=== PATIENT | female | born 1960 | race Caucasian/White ===

== ENCOUNTER 2023-09-12 13:22 | Outpatient (CLI) | payer MEDICARE | END 2023-09-12 13:23 | disposition home or self-care (01) | LOC: SCSRAD 13:22 | PROVIDERS: ATTEND Family Medicine | DX: R53.83 Other fatigue (principal); R93.5 Abnormal findings on diagnostic imaging of other abdominal regions, including retroperitoneum; R39.9 Unspecified symptoms and signs involving the genitourinary system | CPT/HCPCS: 36415; 71046; 80053; 85025; 87077; 87086; 87186; 87635 ==

== ENCOUNTER 2023-09-14 09:55 | Day surgery (SDC) | payer MEDICARE ==
[2023-09-14 11:50] LABS: #Basophils 0.1 thou/uL (0.0-0.2); #Eosinphils 2.7 thou/uL (0.0-0.7); #Monocytes 0.6 thou/uL (0.11-0.59); #Neutrophils 5.7 thou/uL (1.40-6.50); %Basophils 0.8 % (0.0-1.0); %Eosinophils 22.2 % (0.0-10.0); %Monocytes 4.8 % (0.0-10.0); Hematocrit 46.1 % (36.0-47.0); Hemoglobin 15.1 g/dL (12.0-16.0); Mean Corpuscular HGB CONC 32.8 g/dL (32.0-36.0); Mean Corpuscular Hemoglobin 30.5 pg (27.0-31.0); Mean Corpuscular Volume 93.1 fl (78.0-98.0); Mean Platelet Volume 11.6 fL (7.4-10.4); Platelet Count 257 10x3/uL (130-400); RBC Distribution Width 14.1 % (11.5-14.5); Red Blood Cell (RBC) Count 4.95 mill/uL (4.20-5.40); White Blood Cell (WBC) Count 12.1 10x3/uL (4.8-10.8)
[2023-09-14 12:18] LABS: ALT (SGPT) 12 U/L (8-55); AST (SGOT) 18 U/L (5-34); Alkaline Phosphatase 104 U/L (40-110); Anion Gap 10 mmol/L (10-20); BUN (Urea Nitrogen) 16 mg/dL (9.8-20.1); Bilirubin, Total 0.3 mg/dL (0.2-1.2); Calc. Creatinine Clearance 0 mL/min (70-130); Calcium 9.6 mg/dL (7.8-10.44); Carbon Dioxide 26 mmol/L (23-31); Chloride 107 mmol/L (98-107); Estimated GFR 49; Globulin 2.8 g/dL (2.4-3.5); Glucose 81 mg/dL (80-115); Potassium 4.8 mmol/L (3.5-5.1); Protein, Total 6.8 g/dL (5.8-8.1); Sodium 138 mmol/L (136-145)
[2023-09-14] MEDS ORDERED: Ketorolac Tromethamine 30 MG (1 mL) VIAL ONE (12:39)
[2023-09-14] MEDS ORDERED: Sodium Chloride 0.9% 100 ML ONE (12:39)
[2023-09-14] MEDS ORDERED: cefTRIAXone (ROCEPHIN) 2 GM VIAL ONE (12:39)
[2023-09-14 13:34] LABS: Bacteria/HPF None Seen HPF (None Seen); Bilirubin Negative (Negative); Blood, Urine Negative (Negative); CAUTI Indications for Culture Dysuria,urgency,freq; Clarity Clear (Clear); Glucose, Urine (Dipstick) Normal (Negative); Ketone, Urine Negative (Negative); Leukocyte 25 Leu/uL (Negative); Nitrite Negative (Negative); Protein, Urine (Dipstick) Negative (Neg-Trace); RBC/HPF 0-3 HPF (0-3); Squamous Epithelial 0-3 HPF (0-3); Urobilinogen Normal mg/dL (Less than 2); pH, Urine 5.5 (5.0-9.0)
[2023-09-14 13:37] LABS: Urine Culture Reflex Yes Yes
[2023-09-14] MEDS ORDERED: Ondansetron PF 4 MG/2 ML Vial ONE (17:12)
[2023-09-14] MEDS ORDERED: Lidocaine 1% PF 5 ML VIAL ONE (17:12)
[2023-09-14] MEDS ORDERED: Dexamethasone 20 MG/5 ML VIAL ONE (17:13)
[2023-09-14] MEDS ORDERED: PROPOFOL 20 ML ONE (17:13)
[2023-09-14] MEDS ORDERED: fentaNYL 50 mcg/mL 1 mL Vial ONE (17:13)
[2023-09-14] MEDS ORDERED: HYDROmorphone 2 MG/ML VIAL ONE (17:32)
[2023-09-14] MEDS ORDERED: Iopamidol 15 ML ONE (17:34)
[2023-09-14] MEDS ORDERED: ePHEDrine Sulfate 50 MG/10 ML VIAL ONE (17:37)
[2023-09-14] MEDS ORDERED: Glycopyrrolate 0.2 MG/ML 5 ML SYRINGE ONE (17:43)
== END 2023-09-14 19:45 | disposition home or self-care (01) ==
LOC: ERS 09:55 → SDC/OP 16:38
PROVIDERS: ATTEND Urology
PROC: 0TC78ZZ Extirpation of Matter from Left Ureter, Via Natural or Artificial Opening Endoscopic (ICD-10-PCS; principal; 2023-09-14)
PROC: 0T778DZ Dilation of Left Ureter with Intraluminal Device, Via Natural or Artificial Opening Endoscopic (ICD-10-PCS; 2023-09-14)
DX: N20.2 Calculus of kidney with calculus of ureter (principal); F17.210 Nicotine dependence, cigarettes, uncomplicated; Z90.710 Acquired absence of both cervix and uterus
CPT/HCPCS: 52356; 74176; 74420; 80053; 81001; 83605; 85025; 87086; J3010; 36415; C2617; J0696; J1100; J1170; J1885; J2405; J2704; J3490; Q9967

== ENCOUNTER 2024-01-12 10:57 | Day surgery (SDC) | payer MEDICARE ==
[2024-01-11 13:24] VITALS: BMI 28.3
[2024-01-12] MEDS ORDERED: Lidocaine 1% PF 5 ML VIAL ONE (13:18)
[2024-01-12] MEDS ORDERED: PROPOFOL 20 ML ONE ×2 (13:18→13:33)
== END 2024-01-12 14:30 | disposition home or self-care (01) ==
LOC: SDC 10:57
PROVIDERS: ATTEND Internal Medicine Gastroenterology
PROC: XW0H7X8 Introduction of Broad Consortium Microbiota-based Live Biotherapeutic Suspension into Lower GI, Via Natural or Artificial Opening, New Technology Group 8 (ICD-10-PCS; principal; 2024-01-12)
PROC: 0DBE8ZX Excision of Large Intestine, Via Natural or Artificial Opening Endoscopic, Diagnostic (ICD-10-PCS; 2024-01-12)
DX: A04.72 Enterocolitis due to Clostridium difficile, not specified as recurrent (principal); Z79.899 Other long term (current) drug therapy; F17.210 Nicotine dependence, cigarettes, uncomplicated
CPT/HCPCS: 45380; J2704; 88305

== ENCOUNTER 2024-05-28 13:17 | Outpatient (CLI) | payer MEDICARE | END 2024-05-28 13:18 | disposition home or self-care (01) | LOC: BICCT 13:17 | PROVIDERS: ATTEND Family Medicine | DX: Z12.2 Encounter for screening for malignant neoplasm of respiratory organs (principal); N20.0 Calculus of kidney; I25.10 Atherosclerotic heart disease of native coronary artery without angina pectoris; Z87.891 Personal history of nicotine dependence | CPT/HCPCS: 71271 ==

== ENCOUNTER 2024-06-26 14:12 | Outpatient (CLI) | payer MEDICARE | END 2024-06-26 14:13 | disposition home or self-care (01) | LOC: BICRAD 14:12 | PROVIDERS: ATTEND Family Medicine | DX: M54.2 Cervicalgia (principal); M89.8X1 Other specified disorders of bone, shoulder; M47.812 Spondylosis without myelopathy or radiculopathy, cervical region | CPT/HCPCS: 72050 ==

== ENCOUNTER 2024-07-16 10:13 | Outpatient (CLI) | payer MEDICARE | END 2024-07-16 10:14 | disposition home or self-care (01) | LOC: SCSMRI 10:13 | PROVIDERS: ATTEND Surgery | DX: M50.11 Cervical disc disorder with radiculopathy, high cervical region (principal); M50.121 Cervical disc disorder at C4-C5 level with radiculopathy; M50.122 Cervical disc disorder at C5-C6 level with radiculopathy; M47.816 Spondylosis without myelopathy or radiculopathy, lumbar region; M47.815 Spondylosis without myelopathy or radiculopathy, thoracolumbar region; M51.35 Other intervertebral disc degeneration, thoracolumbar region; M51.369 Other intervertebral disc degeneration, lumbar region without mention of lumbar back pain or lower extremity pain; M48.061 Spinal stenosis, lumbar region without neurogenic claudication; M51.27 Other intervertebral disc displacement, lumbosacral region; M48.07 Spinal stenosis, lumbosacral region; N28.9 Disorder of kidney and ureter, unspecified; M25.78 Osteophyte, vertebrae; R93.7 Abnormal findings on diagnostic imaging of other parts of musculoskeletal system | CPT/HCPCS: 72120; 72141; 72148 ==